=== PATIENT | male | born 1970 | race Caucasian/White ===

== ENCOUNTER 2023-08-24 18:26 | Emergency (ER) | payer OTHER, SELFPAY ==
[2023-08-24 18:29] VITALS: BP 153/93
--- NOTE | 2023-08-24 19:32 | ED.GENMED ---
History of Present Illness
General
Chief Complaint: Dizziness
Time Seen by Provider: 08/24/23 19:32
Travel History
Have you had any contact with someone who has COVID-19?: No
Do you have any symptoms of coronavirus? Fever > 100 degrees, chills, cough, shortness of breath, sore throat, loss of taste or smell, muscle aches, or headache?: No
History of Present Illness
History of Present Illness:
HPI: Over the past 2 weeks, the patient been having dizziness that seem to worsen with certain head position changes. It does also worsen when he lays back flat. In the past he would get orthostatic kind of symptoms but does not have orthostatic
symptoms today. He also has developed upper back discomfort over these past 2 weeks and also had some watery discharge from the left eye along with 'a bump' over the upper lid. He also notes that he has been drinking a lot of coffee recently. He
does not normally have high blood pressure.
EXAM:
GENERAL: Well appearing in no distress
HEENT: Moist oral mucosa, there is a chalazion to the left upper lid, there is no conjunctival injection and no purulent drainage
CARDIOVASCULAR: No murmurs, normal heart rate, regular rhythm, No chest wall tenderness
PULMONARY: No respiratory distress, breath sounds are clear and equal
ABDOMEN: Soft with no peritoneal signs, no tenderness
NEUROLOGIC: Excellent strength all extremities, no coordination deficits, negative Aman-Hallpike maneuver
PSYCHIATRIC: Appropriate mental status, normal insight and judgement
EXTREMITIES: Nontender, no edema, moves all extremities equally
SKIN: No rash, no lesions
TIME OF INITIAL ENCOUNTER: 7:35 PM
NUMBER AND COMPLEXITY OF PROBLEMS ADDRESSED AT THE ENCOUNTER
� Chronic conditions affecting care: Non-Hodgkin's lymphoma, prostate cancer, depression
� Acute Exacerbation and/or Progression of Chronic Illness: This is an acute problem
� Differential Diagnosis includes: BPPV, intracranial mass/metastatic disease, electrolyte abnormality, hyperglycemia.
AMOUNT AND/OR COMPLEXITY OF DATA TO BE REVIEWED AND ANALYZED
� I performed an independent evaluation of and my interpretation is:
EKG: Sinus 69, nonspecific ST abnormality, overall EKG is improved in comparison to 01/11/2020 when he had precordial T wave inversion
CT: CT head negative
X-rays:
Laboratory Studies: CBC unremarkable, sodium 134, otherwise chemistries unremarkable, troponin negative
Other:
� Review of other/old records: I reviewed records�patient had polyp removed on colonoscopy in May 2022
� Clinical information was obtained by an independent historian: I spoke to the at bedside
� Prescriptions/Medications Considered but not given:
� Further testing considered but not performed:
RISK OF COMPLICATIONS AND/OR MORBIDITY OR MORTALITY OF PATIENT MANAGEMENT
� Social determinants of health affecting care: Lives at home
� Discussion with other providers: None needed
� Escalation of care including admission/observation vs risk of discharge considered: The patient has dizziness for the past 2 weeks which I favor BPPV by history however he has a negative Aman-Hallpike maneuver. Given his
history of malignancy will obtain CT imaging of the brain. He also has upper back discomfort will obtain cardiac evaluation as well. Cardiac evaluation is unremarkable tonight. CT imaging negative. Favor BPPV. I reassessed patient at 9 PM, the
patient has very minimal symptoms and is very well-appearing on reassessment.
Past History
Past History
ED Past Medical History: Psychiatric
Social History
Tobacco: Non-smoker
Alcohol: Occasional
Drug: None
Personal:
Living: with family
Phy Exam
Physical Exam
Physical Exam:
See HPI
Course
Orders/Labs/Results
Orders:
Orders
08/24/23 19:42
Electrocardiogram (*1) Urgent
Reason for Study: Chest Pain
EKG- Treatment ONCE
08/24/23 19:43
CT Head W/o Iv Contrast Urgent
Comment:
Reason For Exam: worsening dizziness; h/o prostate CA
08/24/23 19:53
Basic Metabolic Panel Urgent
Complete Blood Count/With Diff Urgent
Troponin I Urgent
Abnormal Lab Results
08/24/23
19:53
RBC 4.44 L 10^6/uL
(4.70-6.10)
MCH 31.8 H pg
(27.0-31.0)
Abs Immat Gran (auto) 0.1 H 10^3/uL
(0-0.05)
Absolute Monos (auto) 1.0 H 10^3/uL
(0.1-0.6)
Monocytes % 10.4 H %
(1.7-9.3)
Sodium 134 L mmol/L
(135-145)
08/24/23 19:53
08/24/23 19:53
Vital Signs
Initial and Last Documented VS:
Initial Vital Signs
Temp Pulse Resp BP Pulse Ox
97.9 F 82 18 153/93 97
08/24/23 18:29 08/24/23 18:29 08/24/23 18:29 08/24/23 18:29 08/24/23 18:29
Last Documented Vital Signs
Temp Pulse Resp BP Pulse Ox
97.9 F 82 18 153/93 97
08/24/23 18:29 08/24/23 18:29 08/24/23 18:29 08/24/23 18:29 08/24/23 18:29
*Critical Care Note
Total Time (30-74mins, 75-104mins- exclusive of procedures): Not Applicable
ED Attending Note
-
Portions of this chart may have been created with voice recognition software.� Occasional wrong word or��sound alike� substitutions may have occurred due to the inherent limitations of voice recognition software.
Discharge Plan
Departure
Patient Disposition: Home (Routine Discharge)
Date of Disposition: 08/24/23
Time of Disposition: 21:02
Patient with high blood pressure during this ER visit?: Yes
Discharge Problem:
Vertigo
Instructions: Vertigo (a Type of Dizziness) (DC)
Prescriptions:
No Action
escitalopram oxalate 10 MG tablet
10 mg PO DAILY
prednisone 20 MG tablet
40 mg PO DAILY Qty: 3 0RF
aspirin 81 MG tablet,delayed release (DR/EC)
81 mg PO DAILY Qty: 30 0RF
famotidine 20 MG tablet
20 mg PO BID Qty: 6 0RF
epinephrine [Auvi-Q] 0.3 MG/0.3 ML auto-injector
0.3 mg IJ PRN PRN (Reason: Bee sting) Qty: 1 0RF
Referrals:
Guido Clinton MD [Family Provider] -
Activity Restrictions/Additional Instructions:
The cause of your symptoms is unclear but may be related to benign paroxysmal positional vertigo. Your blood work including cardiac blood work is unremarkable. CAT scan of the brain was normal. EKG is improved compared to prior.
Interventions
Interventions:
*Risk Screen - Suicide Last Done: 08/24/23 18:33
*General Assessment Last Done: 08/24/23 18:33
*Neglect/Abuse Screening Last Done: 08/24/23 18:33
*ED COVID-19 Vaccine History Last Done: 08/24/23 19:51
ED- Neurological Assessment Last Done: 08/24/23 19:51
ED Swallowing Screen Last Done: 08/24/23 19:51
Discharge Date and Time
Print Language: CITIZEN OF [place]
[2023-08-24 19:51] VITALS: BMI 31.7
[2023-08-24 20:00] LABS: % Basophils 0.8 % (0-2); % Eosinophils 2.3 % (0-6); % Immature Granulocytes 0.5 % (0-0.5); % Lymphocytes 26.7 % (20.5-51.1); % Monocytes 10.4 % (1.7-9.3); % Neutrophils 59.3 % (42.2-75.2); Absolute Basophils 0.1 10^3/uL (0-0.2); Absolute Eosinophils 0.2 10^3/uL (0-0.7); Absolute Immature Granulocytes 0.1 10^3/uL (0-0.05); Absolute Lymphocytes 2.6 10^3/uL (1.2-3.4); Absolute Neutrophils 5.7 10^3/uL (1.4-6.5); Hematocrit 39.9 % (39.0-52.0); Hemoglobin 14.1 g/dL (13.0-18.0); Mean Corp Hgb Conc. 35.3 g/dL (33.0-37.0); Mean Corpuscular Hgb 31.8 pg (27.0-31.0); Mean Corpuscular Volume 89.9 fL (80.0-94.0); Mean Platelet Volume 8.6 fL (7.4-10.4); Nucleated Red Blood Cells % 0 % (-); Platelet Count 276 10^3/uL (130-400); Red Blood Cell Count 4.44 10^6/uL (4.70-6.10); Red Cell Dist. Width 12.4 % (11.5-14.5); White Blood Cell Count 9.6 10^3/uL (4.8-10.8)
[2023-08-24 20:14] LABS: Blood Urea Nitrogen 14 mg/dl (9-20); Carbon Dioxide 24 mmol/L (22-30); Chloride 104 mmol/L (98-107); Estimated Creatinine Clearance 115 ml/min; Glucose 97 mg/dl (70-99); Sodium 134 mmol/L (135-145); eGFR > 60.00
[2023-08-24 20:23] LABS: Troponin I < 0.012 ng/ml
[2023-08-24 21:11] VITALS: BP 131/90
== END 2023-08-24 21:12 | disposition home or self-care (01) ==
LOC: EMR 18:26
PROVIDERS: EMERGENCY PHYSICIAN Emergency Medicine; FAMILY PHYSICIAN Family Medicine
DX: R42 Dizziness and giddiness (principal); R03.0 Elevated blood-pressure reading, without diagnosis of hypertension
CPT/HCPCS: 99285; 70450; 80048; 84484; 85025; 93005

== ENCOUNTER 2024-09-16 12:18 | Emergency (ER) | payer OTHER, SELFPAY ==
[2024-09-16 12:21] VITALS: BP 146/92
--- NOTE | 2024-09-16 12:34 | EDRN ---
Patient placed in C-collar and sent directly to CT scan.
[2024-09-16 14:09] VITALS: BP 149/99
[2024-09-16 14:15] VITALS: BMI 31.4
[2024-09-16 14:19] LABS: Hematocrit 42.7 % (39.0-52.0); Hemoglobin 14.5 g/dL (13.0-18.0); Mean Corpuscular Hgb 31.5 pg (27.0-31.0); Mean Corpuscular Volume 92.8 fL (80.0-94.0); Mean Platelet Volume 8.4 fL (7.4-10.4); Platelet Count 288 10^3/uL (130-400); Red Cell Dist. Width 12.6 % (11.5-14.5)
[2024-09-16 14:31] LABS: ALT (SGPT) 28 U/L (0-50); AST (SGOT) 21 U/L (17-59); Albumin 4.3 g/dl (3.5-5.0); Alkaline Phosphatase 93 U/L (38-126); Blood Urea Nitrogen 15 mg/dl (9-20); Calcium 9.6 mg/dl (8.4-10.2); Carbon Dioxide 26 mmol/L (22-30); Chloride 105 mmol/L (98-107); Estimated Creatinine Clearance 113 ml/min; Glucose 93 mg/dl (70-99); Potassium 4.3 mmol/L (3.5-5.1); Sodium 139 mmol/L (135-145); Total Bilirubin 0.7 mg/dl (0.2-1.3); Total Protein 7.1 g/dl (6.3-8.2); eGFR > 60.00
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
[2024-09-16 15:00] VITALS: BP 127/90
== END 2024-09-16 15:33 | disposition short-term general hospital (02) ==
LOC: EMR 12:18
PROVIDERS: EMERGENCY PHYSICIAN Emergency Medicine; FAMILY PHYSICIAN Family Medicine
DX: S06.5XAA Traumatic subdural hemorrhage with loss of consciousness status unknown, initial encounter (principal); R10.30 Lower abdominal pain, unspecified; M54.2 Cervicalgia; V86.56XA Driver of dirt bike or motor/cross bike injured in nontraffic accident, initial encounter
CPT/HCPCS: 99285; 70450; 72125; 80053; 85027